=== PATIENT | female | born 1950 | race Caucasian/White ===

== ENCOUNTER 2017-08-16 16:47 | Emergency (ER) | payer MEDICARE, OTHER ==
--- NOTE | 2017-08-16 17:12 | EDM.PDOC ---
ED HPI GENERAL MEDICAL PROBLEM - General Chief Complaint: Cardiovascular Problem Stated Complaint: NUMBNESS IN LEFT SIDE OF FACE,HIGH BP Time Seen by Provider: 08/16/17 16:47 Source of Information: Reports: Patient, Family History Limitations: Reports: No Limitations - History of Present Illness INITIAL COMMENTS - FREE TEXT/NARRATIVE: 66 years old w f with with a H/O left sided cheek numbness, off/onn for several years, had CTs of her head., all neg. At one time, her neurologist told her she has mini strokes. Pt was seen at the clinic and sent to the ed for further care. BP 190/78 pulse 105 Temp 37.1 RR 18 Pulse ox 100% Onset Date: 08/15/17 Onset Time: 15:00 Duration: Intermittent Location: Reports: Face Quality: Reports: Same as Previous Episode Severity: Mild Improves with: Reports: Rest Worsens with: Reports: Movement Associated Symptoms: Reports: No Other Symptoms - Related Data Allergies Allergy/AdvReac Type Severity Reaction Status Date / Time Penicillins Allergy Rash Verified 08/16/17 17:01 Home Meds: Home Meds Multivitamin [Multi-Vitamin Daily] 1 tab PO DAILY 08/16/17 [History] Ranitidine HCl [Zantac] 150 mg PO ASDIRECTED 08/16/17 [History] ED ROS GENERAL - Review of Systems Review Of Systems: See Below Constitutional: Reports: No Symptoms HEENT: Reports: Other (numbness left face) Respiratory: Reports: No Symptoms Cardiovascular: Reports: No Symptoms Endocrine: Reports: No Symptoms GI/Abdominal: Reports: No Symptoms : Reports: No Symptoms Musculoskeletal: Reports: No Symptoms Skin: Reports: No Symptoms Neurological: Reports: No Symptoms Psychiatric: Reports: No Symptoms Hematologic/Lymphatic: Reports: No Symptoms Immunologic: Reports: No Symptoms ED EXAM, GENERAL - Physical Exam Exam: See Below Exam Limited By: No Limitations General Appearance: Alert, WD/WN, No Apparent Distress Eye Exam: Bilateral Eye: Normal Inspection Ears: Normal External Exam Ear Exam: Bilateral Ear: Auricle Normal Nose: Normal Inspection, Normal Mucosa Throat/Mouth: Normal Inspection, Normal Lips Head: Atraumatic, Normocephalic, Other (paresthesia lrft cheek) Neck: Normal Inspection Respiratory/Chest: No Respiratory Distress, Lungs Clear Cardiovascular: Normal Peripheral Pulses, Regular Rate, Rhythm Peripheral Pulses: 1+: Femoral (L), Femoral (R) GI/Abdominal: Normal Bowel Sounds, Soft (Female) Exam: Deferred Rectal (Female) Exam: Deferred Back Exam: Normal Inspection, Full Range of Motion Extremities: Normal Inspection, Normal Range of Motion, Non-Tender Neurological: Alert, Oriented, CN II-XII Intact, Normal Cognition, Normal Gait Psychiatric: Normal Affect, Normal Mood Skin Exam: Warm, Dry, Intact, Normal Color, No Rash Lymphatic: No Adenopathy EKG INTERPRETATION EKG Date: 08/16/17 Time: 17:20 Rhythm: NSR Rate (Beats/Min): 88 Isabella: Normal P-Wave: Present QRS: Normal ST-T: Normal QT: Normal Comparison: NA - No Prior EKG EKG Interpretation Comments: ST depression Inf leads < 1 mm Course - Vital Signs Text/Narrative:: 66 years old w f with with a H/O left sided cheek numbness, off/onn for several years, had CTs of her head., all neg. At one time, her neurologist told her she has mini strokes. Pt was seen at the clinic and sent to the ed for further care. BP 190/78 pulse 105 Temp 37.1 RR 18 Pulse ox 100% PE: left facial paresthesia, HTN urgency Imaging MRI refused BP Recheck: 148/78 ECG: NSR, please see note above Impression: BP check, Left facial paresthesia Tx: None Reexam: Pt refused MRI, BP recheck 148/76 Plan: D/C with instructions Last Recorded V/S: Last Vital Signs Temp 36.6 C 08/16/17 17:04 Pulse 78 08/16/17 18:40 Resp 14 08/16/17 18:40 BP 148/59 H 08/16/17 18:40 Pulse Ox 100 08/16/17 18:40 - Orders/Labs/Meds Orders: Active Orders 24 hr Category Date Time Status EKG Documentation Completion [RC] ASDIRECTED Care 08/16/17 17:11 Active EKG 12 Lead [EK] Routine Ther 08/16/17 17:10 Ordered Departure - Departure Time of Disposition: 18:46 Disposition: Home, Self-Care 01 Condition: Good Clinical Impression: Blood pressure check, Facial paresthesia Referrals: Betty Hernandez NP [Primary Care Provider] - Forms: ED Department Discharge Additional Instructions: Please cont your meds, please check your BP again tomorrow, please f/u with your PMD to be scheduled for a brain MRI. Please come back if your symptoms get worse acutely. - My Orders Last 24 Hours: My Active Orders 08/16/17 17:10 EKG 12 Lead [EK] Routine 08/16/17 17:11 EKG Documentation Completion [RC] ASDIRECTED - Assessment/Plan Last 24 Hours: My Active Orders 08/16/17 17:10 EKG 12 Lead [EK] Routine 08/16/17 17:11 EKG Documentation Completion [RC] ASDIRECTED
== END 2017-08-16 18:54 | disposition home or self-care (01) ==
LOC: FB.ED 16:47
DX: I16.0 Hypertensive urgency (principal); R20.2 Paresthesia of skin; Z88.0 Allergy status to penicillin
CPT/HCPCS: 93005; 93010; 99283; 99284